=== PATIENT | female | born 1945 | race Caucasian/White ===

== ENCOUNTER → 2018-03-29 | Outpatient (CLI) | payer MEDICARE, OTHER | LOC: OD 12:19 | PROVIDERS: ATTEND Nurse Practitioner Acute Care | DX: R30.0 Dysuria (principal) | CPT/HCPCS: 87086; 87088; 87186 ==

== ENCOUNTER 2018-05-04 06:32 | Day surgery (SDC) | payer MEDICARE, OTHER ==
[~2018-05-04 06:32] MED LIST: BUPIVACAINE HCL 0.75% INJ/PF (7.5 MG/1 ML) 10 ML SDV OS PRN; KETOROLAC TROMETHAMINE 0.45% 4 DROP/0.4 ML DROPERETTE OS PRN; LIDOCAINE 4% INJ/PF (40 MG/ML) 5 ML AMPUL OS PRN
[2018-05-04] MEDS: BESIFLOXACIN HCL 0.6% OPH SUSP 5 ML BOTTLE OS PRN ×4 (06:53→08:00)
[2018-05-04] MEDS: TROPICAMIDE 1% OPH SOLN 3 ML OS PRN ×3 (06:53→07:13)
[2018-05-04] MEDS: CYCLOPENTOLATE 0.2%/PHENYLEPHRINE 1% OPH SOLN 2 ML OS PRN ×3 (06:53→07:13)
[2018-05-04] MEDS: TETRACAINE HCL 0.5% OPH SOLN 0.6 ML DROPERETTE OS PRN ×2 (06:54→07:13)
[2018-05-04] MEDS ORDERED: MIDAZOLAM 2 MG/2 ML INJ ONE (06:54)
[2018-05-04] MEDS ORDERED: FENTANYL CITRATE INJ/PF 100 MCG/2 ML AMPUL ONE (06:55)
[2018-05-04] MEDS ORDERED: EPINEPHRINE INJ/PF 1 MG/1 ML AMPULE ONE (07:12)
[2018-05-04] MEDS ORDERED: CHONDR SU A NA/HYALUR INTRAOC KIT (SURGICARE) ONE (07:12)
[2018-05-04] MEDS ORDERED: LIDOCAINE 1% INJ-PF (10 MG/ML) 30 ML SDV ONE (07:12)
[2018-05-04] MEDS: DORZOLAMIDE HCL 2%/TIMOLOL MALEAT 0.5% OPH SOLN 10 ML OS PRN ×2 (08:00)
--- NOTE | 2018-05-04 08:21 | [facility] OPERATIVE REPORT E ---
[facility] Operative Report NAME: MARGUERITE MUNOZ AGE: 73Y DATE OF SURGERY: 05/04/2018 ROOM: PREOPERATIVE DIAGNOSIS: CATARACT, LEFT EYE. POSTOPERATIVE DIAGNOSIS: CATARACT, LEFT EYE. PROCEDURE PERFORMED: PHACOEMULSIFICATION WITH POSTERIOR CHAMBER INTRAOCULAR LENS, LEFT EYE. SURGEON: ASHA LAROSE MD ANESTHESIA: TOPICAL WITH MAC. INDICATIONS FOR SURGERY: Difficulty driving at night. PROCEDURE: The patient was brought to the Operating Room and placed on the operative table. Following tetracaine drops, topical anesthesia was administered. This consisted of instrument wipe pledgets soaked in a solution of 4% Xylocaine mixed with 0.75% Marcaine in a 1:2 ratio. A 2 x 1 cm pledget was placed in the superior fornix. A 1 x 1 cm pledget was placed in the inferior fornix. The eye was patched shut for 5 minutes. The patch was removed. The eye was sterilely prepped and draped in the usual manner. Lid speculum was placed in the eye. The pledgets were removed. 4-0 black silk sutures were placed around the superior and the inferior rectus muscles to be used as traction. A conjunctival peritomy was made at the 10 o'clock position. Hemostasis was obtained with bipolar cautery. A posterior limbal groove was created using a crescent knife and dissected anteriorly towards the cornea. A sharp point blade was used to create a paracentesis site at the 2 o'clock position. A 2.4 mm keratome was used to enter the anterior chamber through the groove. Viscoelastic was injected into the anterior chamber. An anterior capsulotomy was performed using Utrata forceps in a capsulorrhexis fashion. Hydrodissection and hydrodelineation were performed. Phacoemulsification was performed in [id number]-znn-wiglrgy technique. A total of 5.50 CDE phaco time was used. Following this, the I/A unit was used to remove residual cortex. Viscoelastic was injected into the capsular bag. Intraocular lens model SN60WF, 19.0 diopters, serial number [id number] was placed in the capsular bag. The I/A unit was used to remove residual viscoelastic. The wound was seen to be watertight under high and low pressure, and no sutures were placed. The intraocular lens was well centered. The pressure was adjusted in the eye to normal pressure. The 4-0 black silk sutures and lid speculum were removed. The eye was shielded after Besivance drops were placed. The patient tolerated the procedure well and was sent to the Recovery Room in good condition. DICTATING PHYSICIAN: ASHA LAROSE M.D. DICTATING PHYSICIAN: ASHA LAROSE M.D. [id number] Y#: [id number] ID: [id number] JOB#: [id number] ACCT: [id number] cc:ASHA LAROSE M.D. >
--- NOTE | 2018-05-04 08:22 | [facility] DISCHARGE SUMMARY E ---
[facility] Discharge Summary NAME: MARGUERITE MUNOZ AGE: 73Y ADMITTED: 05/04/2018 DISCHARGED: 05/04/2018 FINAL DIAGNOSIS: CATARACT, LEFT EYE. HOSPITAL COURSE: The patient is a 73-year-old lady who underwent uneventful cataract extraction with intraocular lens implant, right eye on 05/04/2018. She will be discharged to home. She is instructed to resume preoperative medications, take Tylenol as needed for discomfort, to keep her eye shielded, to use Besivance, Prolensa, and Durezol at 3 p.m. and 8 p.m., and to follow up in my office in 1 day. In addition, 1 drop of Cosopt was placed in the eye at the end of surgery. DICTATING PHYSICIAN: ASHA LAROSE M.D. [id number] PHY#: [id number] ID: [id number] JOB#: [id number] ACCT: [id number] cc:ASHA LAROSE M.D. >
== END 2018-05-04 08:45 | disposition home or self-care (01) ==
LOC: SC 06:32
PROVIDERS: ATTEND Ophthalmology
DX: H25.813 Combined forms of age-related cataract, bilateral (principal); H04.123 Dry eye syndrome of bilateral lacrimal glands; H43.393 Other vitreous opacities, bilateral; D31.31 Benign neoplasm of right choroid; I10 Essential (primary) hypertension; E78.00 Pure hypercholesterolemia, unspecified; G57.93 Unspecified mononeuropathy of bilateral lower limbs; G25.2 Other specified forms of tremor; M19.90 Unspecified osteoarthritis, unspecified site; K21.9 Gastro-esophageal reflux disease without esophagitis; J45.909 Unspecified asthma, uncomplicated; Z79.899 Other long term (current) drug therapy; Z79.891 Long term (current) use of opiate analgesic; Z79.51 Long term (current) use of inhaled steroids; Z79.1 Long term (current) use of non-steroidal anti-inflammatories (NSAID)
CPT/HCPCS: 66984; V2632; J2250; J3490 ×4; A9270; J0171; J3010; 142

== ENCOUNTER 2018-05-25 08:40 | Day surgery (SDC) | payer MEDICARE, OTHER ==
[~2018-05-25 08:40] MED LIST changes: +BUPIVACAINE HCL 0.75% INJ/PF (7.5 MG/1 ML) 10 ML SDV OD PRN; -BUPIVACAINE HCL 0.75% INJ/PF (7.5 MG/1 ML) 10 ML SDV OS PRN; +KETOROLAC TROMETHAMINE 0.45% 4 DROP/0.4 ML DROPERETTE OD PRN; -KETOROLAC TROMETHAMINE 0.45% 4 DROP/0.4 ML DROPERETTE OS PRN; +LIDOCAINE 4% INJ/PF (40 MG/ML) 5 ML AMPUL OD PRN; -LIDOCAINE 4% INJ/PF (40 MG/ML) 5 ML AMPUL OS PRN
[2018-05-25] MEDS: CYCLOPENTOLATE 0.2%/PHENYLEPHRINE 1% OPH SOLN 2 ML OD PRN ×3 (09:45→10:05)
[2018-05-25] MEDS: BESIFLOXACIN HCL 0.6% OPH SUSP 5 ML BOTTLE OD PRN ×5 (09:45→10:56)
[2018-05-25] MEDS: TROPICAMIDE 1% OPH SOLN 3 ML OD PRN ×3 (09:45→10:05)
[2018-05-25] MEDS: TETRACAINE HCL 0.5% OPH SOLN 0.6 ML DROPERETTE OD PRN ×2 (09:46→10:15)
[2018-05-25] MEDS ORDERED: FENTANYL CITRATE INJ/PF 100 MCG/2 ML AMPUL ONE (10:12)
[2018-05-25] MEDS ORDERED: MIDAZOLAM 2 MG/2 ML INJ ONE ×2 (10:12→10:42)
[2018-05-25] MEDS: LIDOCAINE 1% INJ-PF (10 MG/ML) 30 ML SDV ONE ×2 (10:37→10:45)
[2018-05-25] MEDS: CHONDR SU A NA/HYALUR INTRAOC KIT (SURGICARE) ONE ×2 (10:38→10:45)
[2018-05-25] MEDS: DORZOLAMIDE HCL 2%/TIMOLOL MALEAT 0.5% OPH SOLN 10 ML OS PRN ×3 (10:38→10:56)
[2018-05-25] MEDS: EPINEPHRINE INJ/PF 1 MG/1 ML AMPULE ONE ×2 (10:38→10:45)
--- NOTE | 2018-05-25 11:52 | [facility] OPERATIVE REPORT E ---
[facility] Operative Report NAME: MARGUERITE MUNOZ AGE: 73Y DATE OF SURGERY: 05/25/2018 ROOM: PREOPERATIVE DIAGNOSIS: Cataract, right eye. POSTOPERATIVE DIAGNOSIS: Cataract, right eye. PROCEDURE PERFORMED: Phacoemulsification with posterior chamber intraocular lens, right eye. SURGEON: ASHA LAROSE M.D. ANESTHESIA: Topical with MAC. INDICATIONS FOR SURGERY: Difficulty driving at night. PROCEDURE: The patient was brought to the operating room and placed on the operative table. Following tetracaine drops, topical anesthesia was administered. This consisted of instrument wipe pledgets soaked in a solution of 4% Xylocaine mixed with 0.75% Marcaine in a 1:2 ratio. A 2 x 1 cm pledget was placed in the superior fornix. A 1 x 1 cm pledget was placed in the inferior fornix. The eye was patched shut for 5 minutes. The patch was removed. The eye was sterilely prepped and draped in the usual manner. Lid speculum was placed in the eye. The pledgets were removed and 4-0 black silk sutures were placed around the superior and the inferior rectus muscles to be used as traction. A conjunctival peritomy was made at the 10 o'clock position. Hemostasis was obtained with bipolar cautery. A posterior limbal groove was created using a crescent knife and dissected anteriorly towards the cornea. A sharp point blade was used to create a paracentesis site at the 2 o'clock position. A 2.4 mm keratome was used to enter the anterior chamber through the groove. Viscoelastic was injected into the anterior chamber. An anterior capsulotomy was performed using Utrata forceps in a capsulorrhexis fashion. Hydrodissection and hydrodelineation were performed. Phacoemulsification was performed in lpwgmq-iqz-jnxnepd technique. Total phaco time was 3.72 CDE. Following this, the I/A unit was used to remove residual cortex. Viscoelastic was injected into the capsular bag. Intraocular lens model SN60WF, 19.5 diopters, serial number [id number], was placed in the capsular bag. The I/A unit was used to remove residual viscoelastic. The wound was seen to be watertight under high and low pressure, and no sutures were placed. The intraocular lens was well centered. The pressure was adjusted in the eye to normal pressure. The 4-0 black silk sutures and lid speculum were removed. The eye was shielded after Besivance drops were placed. The patient tolerated the procedure well and was sent to the recovery room in good condition. DICTATING PHYSICIAN: ASHA LAROSE M.D. [id number] PHY#: [id number] ID: [id number] JOB#: [id number] ACCT: [id number] cc:ASHA LAROSE M.D. >
--- NOTE | 2018-05-25 11:53 | [facility] DISCHARGE SUMMARY E ---
[facility] Discharge Summary NAME: MARGUERITE MUNOZ AGE: 73Y ADMITTED: 05/25/2018 DISCHARGED: 05/25/2018 FINAL DIAGNOSIS: Cataract, right eye. HOSPITAL COURSE: The patient is a 73-year-old lady who underwent uneventful cataract extraction with intraocular lens implant, right eye, on 05/25/2018. She will be discharged to home. She was instructed to resume preoperative medications; to take Tylenol as needed for discomfort; to keep her eye shielded; to use Durezol, Prolensa, and Besivance at 3 p.m. and 8 p.m.; and to follow up in my office in 1 day. DICTATING PHYSICIAN: ASHA LAROSE M.D. [id number] PHY#: [id number] ID: [id number] JOB#: [id number] ACCT: [id number] cc:ASHA LAROSE M.D. >
== END 2018-05-25 11:38 | disposition home or self-care (01) ==
LOC: SC 08:40
PROVIDERS: ATTEND Ophthalmology
DX: H25.811 Combined forms of age-related cataract, right eye (principal); Z96.1 Presence of intraocular lens; I10 Essential (primary) hypertension; Z79.899 Other long term (current) drug therapy; K21.9 Gastro-esophageal reflux disease without esophagitis
CPT/HCPCS: 66984; V2632; J2250; J3490 ×4; A9270; J0171; J3010; 142

== ENCOUNTER 2018-07-12 11:41 | Emergency (ER) | payer MEDICARE, OTHER ==
--- NOTE | 2018-07-12 13:07 | ER Document Report ---
ED GI/ - General Chief Complaint: Abdominal Pain Stated Complaint: ABDOMINAL PAIN, PAINFUL URINATION Time Seen by Provider: 07/12/18 13:00 Primary Care Provider: NARESH ALVAREZ MD [Primary Care Provider] - Follow up as needed Notes: 73-year-old female patient emergency department chief complaint of dysuria. Patient states symptoms have been on and off for about the last 3 weeks. Not getting better. Also she has run out of her gabapentin. Denies any change in bowel or bladder function just increased frequency of urination mild discomfort with urination. TRAVEL OUTSIDE OF THE [place] IN LAST 30 DAYS: No - HPI Patient complains to provider of: Dysuria Timing/Duration: Gradual, Constant, Worse Quality of pain: Burning Severity at maximum: Moderate Pain Level: 3 Location: Suprapubic - Related Data Allergies/Adverse Reactions: No Known Allergies Allergy (Verified 07/12/18 11:43) Past Medical History - General Information source: Patient - Social History Smoking Status: Unknown if Ever Smoked Frequency of alcohol use: None Drug Abuse: None Lives with: Spouse/Significant other Family History: Reviewed & Not Pertinent Patient has suicidal ideation: No Patient has homicidal ideation: No - Past Medical History Cardiac Medical History: Reports: Hx Hypertension Denies: Hx Coronary Artery Disease, Hx Heart Attack Pulmonary Medical History: Reports: Hx Asthma, Hx Pneumonia - 2009 Denies: Hx Bronchitis, Hx COPD Neurological Medical History: Denies: Hx Cerebrovascular Accident, Hx Seizures Renal/ Medical History: Denies: Hx Peritoneal Dialysis GI Medical History: Denies: Hx Hepatitis, Hx Hiatal Hernia, Hx Ulcer Musculoskeletal Medical History: Reports Hx Arthritis Infectious Medical History: Denies: Hx Hepatitis Past Surgical History: Reports: Hx Abdominal Surgery - partial colon removal, Hx Hysterectomy, Hx Orthopedic Surgery - R rotator cuff x2, R knee replacement. Denies: Hx Mastectomy, Hx Open Heart Surgery, Hx Pacemaker - Immunizations Hx Diphtheria, Pertussis, Tetanus Vaccination: Yes Review of Systems - Review of Systems Constitutional: denies: Fever, Malaise, Weakness EENT: denies: Eye pain, Throat pain, Difficulty swallowing Cardiovascular: denies: Chest pain, Palpitations, Heart racing Respiratory: denies: Cough, Hurts to breathe, Short of breath, Wheezing Gastrointestinal: denies: Abdominal pain, Diarrhea, Nausea, Vomiting Genitourinary: Burning, Dysuria, Urgency. denies: Discharge, Flank pain Skin: denies: Dryness, Lesions, Lumps, Rash Neurological/Psychological: Tremor. denies: Confusion, Weakness, Suicidal ideation Physical Exam - Vital signs Vitals: Temp Pulse Resp BP Pulse Ox 98.6 F 61 20 179/81 H 95 07/12/18 12:08 07/12/18 12:08 07/12/18 12:08 07/12/18 12:08 07/12/18 12:08 Interpretation: Normal - General General appearance: Appears well, Alert - HEENT Head: Normocephalic, Atraumatic Eyes: Normal Pupils: PERRL - Respiratory Respiratory status: No respiratory distress Chest status: Nontender Breath sounds: Normal Chest palpation: Normal - Cardiovascular Rhythm: Regular Heart sounds: Normal auscultation Murmur: No - Abdominal Inspection: Normal Distension: No distension Bowel sounds: Normal Tenderness: Nontender Organomegaly: No organomegaly - Back Back: Normal, Nontender - Extremities General upper extremity: Normal inspection, Nontender, Normal color, Normal ROM, Normal temperature General lower extremity: Normal inspection, Nontender, Normal color, Normal ROM, Normal temperature, Normal weight bearing. No: Luis Armando's sign - Neurological Neuro grossly intact: Yes Cognition: Normal Orientation: AAOx4 [place] Coma Scale Eye Opening: Spontaneous [place] Coma Scale Verbal: Oriented [place] Coma Scale Motor: Obeys Commands [place] Coma Scale Total: 15 Speech: Normal Motor strength normal: LUE, RUE, LLE, RLE Sensory: Normal - Psychological Associated symptoms: Normal affect, Normal mood - Skin Skin Temperature: Warm Skin Moisture: Dry Skin Color: Normal Course - Re-evaluation Re-evalutation: 07/12/18 15:16 Laboratory 07/12/18 07/12/18 13:43 13:43 Urine Color YELLOW Urine Appearance SLIGHTLY-CLOUDY Urine pH 5.0 Ur Specific Lavina 1.016 Urine Protein NEGATIVE Urine Glucose (UA) NEGATIVE Urine Ketones NEGATIVE Urine Blood NEGATIVE Urine Nitrite NEGATIVE Urine Bilirubin NEGATIVE Urine Urobilinogen NEGATIVE Ur Leukocyte Esterase TRACE H Urine WBC (Auto) 3 Urine RBC (Auto) 0 Urine Bacteria (Auto) 3+ Squamous Epi Cells Auto 4 Urine Mucus (Auto) MOD Urine Creatinine 86.6 Urine Ascorbic Acid NEGATIVE At this time patient is convinced she has a urinary tract infection. Has having discomfort with urination. She has 3+ bacteria and WBCs with some leukocyte esterase but no nitrites. We will culture the urine. Patient would like to try antibiotics at this time. She is nontoxic in appearance. Of note, patient has not been taking her gabapentin and she thinks this is contributing to a lot of her symptoms as well and has requested a refill. I do not mind doing that either. I have given the results of her urinalysis just share with her primary care doctor. We will discharge at this time with strict instructions that if symptoms are getting worse or no better in the next 24 hours she should return as we cannot 100% exclude any other intra-abdominal pathology, kidney dysfunction or other issues as we have not done any labs today. 07/12/18 15:22 Of note, discharge blood pressures were high. Patient was a little frustrated and and in pain. Also patient states that she is in withdrawal from being off of her gabapentin. She denies any chest pain or shortness of breath. No other major symptoms at this time. Patient has blood pressure medication at home. Patient has been advised to recheck her blood pressure when she gets home after taking her medications and if it continues to be high she should return for repeat evaluation. 07/12/18 15:34 Manual blood pressure performed, blood pressure 155/85 - Vital Signs Vital signs: Temp Pulse Resp BP Pulse Ox 97.8 F 59 L 18 158/98 H 99 07/12/18 15:20 07/12/18 15:20 07/12/18 15:20 07/12/18 15:30 07/12/18 15:20 - Laboratory Laboratory results interpreted by me: 07/12/18 13:43 Ur Leukocyte Esterase TRACE H Discharge - Discharge Clinical Impression: Urinary tract infection Qualifiers: Urinary tract infection type: site unspecified Hematuria presence: without hematuria Qualified Code(s): N39.0 - Urinary tract infection, site not specified Condition: Good Disposition: HOME, SELF-CARE Instructions: Trimethoprim-Sulfa ([facility]), Urinary Anesthetic Agent ([facility]), Urinary Tract Infection ([facility]) Additional Instructions: In the event that you develop any worsening lower abdominal pain, fever, chest pain, shortness of breath, back pain or other concerns he should return in the next 12-24 hours for recheck. We are refilling the gabapentin. The prescription is written for 300 mg 3 times a day. I realize that you were taking 2 capsules 3 times a day. 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 Do not stop gabapentin immediately as immediate withdrawal from gabapentin has been shown to be at high risk factor for seizures. Prescriptions: Gabapentin [Neurontin 300 mg Capsule] 300 mg PO TID 30 Days #60 cap Phenazopyridine HCl [Pyridium 100 Mg Tablet] 100 mg PO TID 3 Days #9 tablet Sulfamethoxazole/Trimethoprim [Bactrim Ds Tablet] 1 each PO BID 5 Days #10 tablet Referrals: NARESH ALVAREZ MD [Primary Care Provider] - Follow up as needed
[2018-07-12 14:44] LABS: APPEARANCE,URINE SLIGHTLY-CLOUDY; BILIRUBIN,URINE NEGATIVE (NEGATIVE); COLOR,URINE YELLOW; GLUCOSE, URINE NEGATIVE (NEGATIVE); KETONES,URINE NEGATIVE (NEGATIVE); LEUKOCYTE ESTERASE,URINE TRACE (NEGATIVE); NITRITE,URINE NEGATIVE (NEGATIVE); PROTEIN,URINE NEGATIVE (NEGATIVE); URINE SPECIFIC GRAVITY 1.016; UROBILINOGEN,URINE NEGATIVE mg/dL (<2.0)
[2018-07-12 15:30] VITALS: BP 158/98
== END 2018-07-12 15:35 | disposition home or self-care (01) ==
LOC: ER 11:41
DX: N39.0 Urinary tract infection, site not specified (principal); R10.9 Unspecified abdominal pain; R30.0 Dysuria; Z79.899 Other long term (current) drug therapy; I10 Essential (primary) hypertension; J45.909 Unspecified asthma, uncomplicated
CPT/HCPCS: 81001; 82570; 99283